=== PATIENT | female | born 1990 | race Caucasian/White ===

== ENCOUNTER 2017-05-21 09:46 | Observation (INO) ==
[2017-05-21 10:32] LABS: Apearance,Urine CLOUDY (Clear); Bacteria,Urine Moderate /HPF (Few); Bilirubin,Urine Negative (Negative); Blood, Urine Large mg/dL (Negative); Calcium Oxalate Crystals,Urine Few /HPF (Few); Glucose,Urine (UA) Negative (Negative); Ketones,Urine 20 mg/dL (Negative); Mucus,Urine Few /LPF (Occasional); Nitrite,Urine Negative (Negative); Protein,Urine 30 MG/DL; RBC,Urine 95 /HPF (0-4); Squamous Epithelial Cell,Urine Occasional /HPF (0-10); Urine Color Yellow (Yellow); Urine Specific Gravity 1.024 (1.001-1.035); Urine Urobilinogen < 2.0 EU/DL (0.2-1.0); WBC,Urine 8 /HPF (0-6)
[2017-05-21] MEDS ORDERED: LACTATED RINGERS 1,000 ML IV ONE (10:44)
[2017-05-21] MEDS ORDERED: ONDANSETRON 4 MG/2 ML VIAL IV ONE (10:44)
[2017-05-21] MEDS ORDERED: CLINDAMYCIN INJ 900 MG in PREMIX 1 EACH IV ONE (11:31)
[2017-05-21] MEDS ORDERED: MEPERIDINE 25 MG/1 ML VIAL IV ONE (11:31)
[2017-05-21] MEDS: ONDANSETRON 4 MG/2 ML VIAL IV PRN (17:39)
[2017-05-21] MEDS: ceFAZolin 2,000 MG in PREMIX 1 EACH IV SCH ×2 (17:41→23:59)
[2017-05-21] MEDS: MEPERIDINE 50 MG/1 ML VIAL IV PRN (18:26)
[2017-05-21] MEDS: LACTATED RINGERS 1,000 ML IV SCH (21:12)
[2017-05-22 00:21] VITALS: BP 121/60
[2017-05-22] MEDS: MEPERIDINE 50 MG/1 ML VIAL IV PRN (01:32)
[2017-05-22] MEDS: ONDANSETRON 4 MG/2 ML VIAL IV PRN (01:32)
[2017-05-22] MEDS: ceFAZolin 2,000 MG in PREMIX 1 EACH IV SCH (06:05)
[2017-05-22] MEDS: LACTATED RINGERS 1,000 ML IV SCH (06:07)
== END 2017-05-22 08:20 | disposition home or self-care (01) ==
LOC: N.LD 09:46 → N.LDOUT 09:46 → N.LD 09:50
PROVIDERS: ADMIT Specialist; ATTEND Specialist

== ENCOUNTER 2017-06-20 05:20 | Inpatient (IN) ==
[2017-06-20] MEDS ORDERED: BUTORPHANOL 1 MG/ML VIAL IV PRN (05:34)
[2017-06-20] MEDS ORDERED: ONDANSETRON 4 MG/2 ML VIAL IV PRN ×2 (05:34→16:23)
[2017-06-20] MEDS: LACTATED RINGERS 1,000 ML IV SCH ×2 (05:49→13:52)
[2017-06-20] MEDS ORDERED: OXYTOCIN/LR 20 UNIT/1,000 ML BAG IV SCH (06:00)
[2017-06-20 06:14] LABS: Basophils # 0.1 10*3/uL (0.0-0.2); Basophils % 0.5 % (0.0-0.8); Eosinophils # 0.1 10*3/uL (0.0-0.87); Eosinophils % 0.9 % (0.00-10.9); Hematocrit 38.7 VOL% (35.7-47.0); Hemoglobin 12.9 GM/DL (12.0-16.0); Immature Granulocytes % 0.9 %; Lymphocytes # 2.4 10*3/uL (1.4-4.0); Lymphocytes % 20.9 % (21.3-54.2); Mean Corpuscular HGB Conc 33.3 GM/DL (32-36); Mean Corpuscular Hemoglobin 30 PG (27-34); Mean Corpuscular Volume 88.8 FL (87-102); Mean Platelet Volume 11.4 FL (9.6-12.0); Monocytes # 0.9 10*3/uL (0.11-0.8); Monocytes % 7.5 % (1.7-12.7); Neutrophils # 8.1 10*3/uL (1.4-7.4); Neutrophils % 69.3 % (38.7-73.9); Platelet Count 330 T/CUMM (130-400); Red Blood Count 4.36 MC/CUMM (3.8-5.5); Red Cell Distribution Width 13.2 % (9.3-17.3); White Blood Count 11.7 T/CUMM (4-12)
[2017-06-20 06:52] LABS: Bilirubin,Total 1.1 MG/DL (0.2-1.0); Calcium 9.2 MG/DL (8.5-10.1); Osmolality,Calculated 270.7 MOS/KG (273-304); Potassium 4.1 MMOL/L (3.5-5.1); Total Protein 6.7 G/DL (6.4-8.3)
[2017-06-20] MEDS ORDERED: BUTORPHANOL 2 MG/ML VIAL ONE (09:05)
[2017-06-20] MEDS: BUTORPHANOL 2 MG/ML VIAL IV PRN ×2 (09:08→12:00)
[2017-06-20] MEDS ORDERED: CITRIC ACID/SODIUM CITRATE 30 ML UDCUP PO ONE (12:08)
[2017-06-20] MEDS ORDERED: hydrOXYzine HCL 25 MG/1 ML VIAL IM PRN (12:08)
[2017-06-20] MEDS ORDERED: diphenhydrAMINE 50 MG/1 ML VIAL IV PRN (12:08)
[2017-06-20] MEDS ORDERED: PROMETHAZINE 25 MG/1 ML VIAL IM PRN (12:08)
[2017-06-20] MEDS ORDERED: ePHEDrine 50 MG/ML AMP IV PRN (12:08)
[2017-06-20] MEDS ORDERED: FAMOTIDINE 20 MG/2 ML VIAL IV ONE (12:08)
[2017-06-20] MEDS ORDERED: fentaNYL 2 MCG/ROPIV 0.2% EPID 150 ML EPIDURAL SCH (12:30)
[2017-06-20 15:37] LABS: Apearance,Urine CLEAR (Clear); Bacteria,Urine Occasional /HPF (Few); Bilirubin,Urine Negative (Negative); Blood, Urine Negative (Negative); Glucose,Urine (UA) Negative (Negative); Ketones,Urine 20 mg/dL (Negative); Mucus,Urine Occasional /LPF (Occasional); Nitrite,Urine Negative (Negative); Protein,Urine 30 MG/DL; RBC,Urine 1 /HPF (0-4); Renal Epithelial Cells,Urine Occasional /HPF (<1); Squamous Epithelial Cell,Urine Occasional /HPF (0-10); Urine Color Yellow (Yellow); Urine Specific Gravity 1.017 (1.001-1.035); Urine Urobilinogen < 2.0 EU/DL (0.2-1.0); WBC,Urine 1 /HPF (0-6)
[2017-06-20] MEDS ORDERED: MEASLES/MUMPS/RUBELLA VACCINE 0.5 ML VIAL SUBCUT ONE (16:23)
[2017-06-20] MEDS ORDERED: OXYTOCIN/LR 20 UNIT/1,000 ML BAG IV ONE (16:23)
[2017-06-20] MEDS ORDERED: LANOLIN 50% CREAM 0.3 OZ TUBE TOP PRN (16:23)
[2017-06-20] MEDS ORDERED: HYDROCORTISONE 2.5% RECTAL CREAM 30 GM TUBE TOP PRN (16:23)
[2017-06-20] MEDS ORDERED: DIPH/TET/ACEL PERT BOOSTER VACCINE 0.5 ML VIAL IM ONE (16:23)
[2017-06-20] MEDS ORDERED: WITCH HAZEL PADS 100/JAR TOP PRN (16:23)
[2017-06-20] MEDS ORDERED: BENZOCAINE 20%/MENTHOL 0.5% SPRAY 56 GM CAN TOP PRN (16:23)
[2017-06-20] MEDS ORDERED: RHO(D) IMMUNE GLOBULIN 300 MCG SYRINGE IM ONE (16:23)
[2017-06-20] MEDS ORDERED: oxyCODONE/ACETAMINOPHEN 5-325 MG TABLET PO PRN ×2 (16:23)
[2017-06-20] MEDS ORDERED: ACETAMINOPHEN 325 MG TABLET PO PRN (16:23)
[2017-06-20] MEDS ORDERED: BISACODYL 10 MG SUPP RECTAL PRN (16:23)
[2017-06-20] MEDS: DOCUSATE SODIUM 100 MG CAPSULE PO SCH (20:41)
[2017-06-20] MEDS: THYROID 60 MG TABLET PO SCH (20:42)
[2017-06-20] MEDS: IBUPROFEN 800 MG TABLET PO PRN (21:07)
[2017-06-21 05:58] LABS: Basophils # 0.1 10*3/uL (0.0-0.2); Basophils % 0.4 % (0.0-0.8); Eosinophils # 0.1 10*3/uL (0.0-0.87); Eosinophils % 0.5 % (0.00-10.9); Hemoglobin 11.6 GM/DL (12.0-16.0); Immature Granulocytes % 0.6 %; Immature Granulocytes Absolute 0.07 #; Lymphocytes # 2.1 10*3/uL (1.4-4.0); Lymphocytes % 17.2 % (21.3-54.2); Mean Corpuscular HGB Conc 34.1 GM/DL (32-36); Mean Corpuscular Hemoglobin 30 PG (27-34); Mean Corpuscular Volume 87.2 FL (87-102); Mean Platelet Volume 11.6 FL (9.6-12.0); Monocytes # 0.9 10*3/uL (0.11-0.8); Monocytes % 7.6 % (1.7-12.7); Neutrophils # 9.1 10*3/uL (1.4-7.4); Neutrophils % 73.7 % (38.7-73.9); Platelet Count 261 T/CUMM (130-400); Red Cell Distribution Width 13.2 % (9.3-17.3); White Blood Count 12.3 T/CUMM (4-12)
[2017-06-21] MEDS: DOCUSATE SODIUM 100 MG CAPSULE PO SCH ×2 (08:10→20:11)
[2017-06-21] MEDS: IBUPROFEN 800 MG TABLET PO PRN ×2 (08:10→20:12)
[2017-06-21] MEDS ORDERED: RHO(D) IMMUNE GLOBULIN 300 MCG SYRINGE IM ONE (17:42)
[2017-06-21] MEDS: THYROID 60 MG TABLET PO SCH (20:11)
[2017-06-22] MEDS: IBUPROFEN 800 MG TABLET PO PRN (05:56)
[2017-06-22 08:44] VITALS: BP 127/86
[2017-06-22] MEDS: DOCUSATE SODIUM 100 MG CAPSULE PO SCH (08:53)
== END 2017-06-22 12:15 | disposition home or self-care (01) | DRG 775 ==
LOC: N.LDOUT 05:20 → N.LD 05:20 → OBSVTOIN 05:34 → N.OB 20:05
PROVIDERS: ADMIT Specialist; ATTEND Specialist